=== PATIENT | male | born 1980 | race Caucasian/White ===

== ENCOUNTER 2020-01-10 15:33 | Inpatient (IN) | payer OTHER ==
--- OUTSIDE RECORDS SUMMARY | 2020-01-10 15:36 | XMS ---
:1980 Author Organization [facility] Support Name Relationship Address Phone UE Unavailable Unavailable Unavailable OLGA KUMAR [address] [phone] [place] [address] Re-disclosure Warning The records that you are about to access may contain information from federally- assisted alcohol or drug abuse programs. If such information is present, then the following federally mandated warning applies: This information has been disclosed to you from records protected by federal confidentiality rules (42 CFR part 2). The federal rules prohibit you from making any further disclosure of this information unless further disclosure is expressly permitted by the written consent of the person to whom it pertains or as otherwise permitted by 42 CFR part 2. A general authorization for the release of medical or other information is NOT sufficient for this purpose. The Federal rules restrict any use of the information to criminally investigate or prosecute any alcohol or drug abuse patient.The records that you are about to access may contain highly sensitive health information, the redisclosure of which is protected by Article 27-F of the [facility] Public Health law. If you continue you may haveaccess to information: Regarding HIV / AIDS; Provided by facilities licensed or operated by the [facility] Office of Mental Health; or Provided by the [facility] Office for People With Developmental Disabilities. If such information is present, then the following [facility] mandated warning applies: This information has been disclosed to you from confidential records which are protected by state law. State law prohibits you from making any further disclosure of this information without the specific written consent of the person to whom it pertains, or as otherwise permitted by law. Any unauthorized further disclosure in violation of state law may result in a fine or long term sentence or both. A general authorization for the release of medical or other information is NOT sufficient authorization for further disclosure. Insurance Providers Payer name Policy type Policy ID Covered Covered democrat's Policy P lars / Coverage democrat ID relationship to [facility] [id number] FIRST
[2020-01-10 18:12] VITALS: BMI 22.1
--- NOTE | 2020-01-10 21:37 | HP ---
COWS - Scale Resting Pulse: 0= [place] 80 or Below Sweatin=Flushed/Facial Moisture Restless Observation: 0= Sits Still Pupil Size: 0= Normal to Room Light Bone or Joint Aches: 4=Acute Joint/Muscle Pain Runny Nose/ Eye Tearin= Runny Nose/Eyes GI Upset > 30mins: 1= Stomach Cramp Tremor Observation: 2= Slight Tremor Visible Yawning Observation: 1= 1-2x During Session Anxiety or Irritability: 2=Irritable/Anxious Goose Flesh Skin: 0=Smooth Skin COWS Score: 14 CIWA Score - Admission Criteria OASAS Guidelines: Admission for Medically Managed Detox: Requires at least one of the followin. CIWA greater than 12 2. Seizures within the past 24 hours 3. Delirium tremens within the past 24 hours 4. Hallucinations within the past 24 hours 5. Acute intervention needed for co occurring medical disorder 6. Acute intervention needed for co occurring psychiatric disorder 7. Severe withdrawal that cannot be handled at a lower level of care (continued vomiting, continued diarrhea, abnormal vital signs) requiring intravenous medication and/or fluids 8. Admission ROS [facility] Chief Complaint: Seeking admission to detox from alcohol Allergies/Adverse Reactions: Allergies Allergy/AdvReac Type Severity Reaction Status Date / Time No Known Allergies Allergy Verified 12/23/14 14:43 History of Present Illness: 39 years old male with 20 years of heroin dependence is seeking admission to detox. Patient was here in 2014 but was not admitted. This is his first admission to [facility]. His last admission was at [facility]. He uses 40 bags of heroin daily. He has medical history of Hep. C, denies psych. history and suicidal ideation at this time. He is unemployed, lives with his family in [place] and denies any legal issues. He reports history of overdose and denies blackouts. Exam Limitations: No Limitations - Ebola screening Have you traveled outside of the country in the last 21 days: No Have you had contact with anyone from an Ebola affected area: No Have you been sick,other than usual withdrawal symptoms: No Do you have a fever: No - Review of Systems Constitutional: Chills, Malaise, Night Sweats, Changes in sleep EENT: reports: No Symptoms Reported Respiratory: reports: No Symptoms reported Cardiac: reports: No Symptoms Reported GI: reports: Nausea, Poor Appetite, Poor Fluid Intake, Abdominal cramping : reports: No Symptoms Reported Musculoskeletal: reports: No Symptoms Reported Integumentary: reports: Dryness, Flushing Neuro: reports: Tremors Endocrine: reports: No Symptoms Reported Hematology: reports: No Symptoms Reported Psychiatric: reports: Mood/Affect Appropiate, Orientated x3 Other Systems: Reviewed and Negative Patient History - Patient Medical History Hx Anemia: No Hx Asthma: No Hx Chronic Obstructive Pulmonary Disease (COPD): No Hx Cancer: No Hx Cardiac Disorders: No Hx Congestive Heart Failure: No Hx Hypertension: No Hx Hypercholesterolemia: No Hx Pacemaker: No HX Cerebrovascular Accident: No Hx Seizures: No Hx Dementia: No Hx Diabetes: No Hx Gastrointestinal Disorders: No (Hep C.) Hx Liver Disease: Yes Hx Genitourinary Disorders: No Hx Sexually Transmitted Disorders: No Hx Renal Disease (ESRD): No Hx Thyroid Disease: No Hx Human Immunodeficiency Virus (HIV): No (Negative 2019) Hx Hepatitis C: Yes (Not treated) Hx Depression: No Hx Suicide Attempt: No Hx Bipolar Disorder: No Hx Schizophrenia: No - Patient Surgical History Past Surgical History: No - PPD History Previous Implant?: Yes Documented Results: Negative w/proof Implanted On Prior R Admission?: No PPD to be Administered?: Yes - Reproductive History Patient is a Female of Child Bearing Age (11 -55 yrs old): No (Male) - Smoking Cessation Smoking history: Current every day smoker Have you smoked in the past 12 months: Yes Aproximately how many cigarettes per day: 20 Hx Chewing Tobacco Use: No Initiated information on smoking cessation: Yes 'Breaking Loose' booklet given: 01/10/20 - Substance & Tx. History Hx Alcohol Use: No Hx Substance Use: Yes Substance Use Type: Cocaine, Heroin - Substances abused Heroin Substance route: Injection Frequency: Daily Amount used: 40 bags Age of first use: 19 Date of last use: 01/10/20 Admission Physical Exam BHS - Vital Signs Vital Signs: Vital Signs - 24 hr 01/10/20 18:10 Temperature 98.1 F Pulse Rate 74 Respiratory 20 Rate Blood Pressure 108/61 - Physical General Appearance: Yes: Severe Distress, Tremorous, Irritable, Anxious HEENTM: Yes: Within Normal Limits Respiratory: Yes: Lungs Clear, Normal Breath Sounds, No Respiratory Distress Neck: Yes: Within Normal Limits Breast: Yes: Breast Exam Deferred Cardiology: Yes: Regular Rhythm, Regular Rate Abdominal: Yes: Normal Bowel Sounds Genitourinary: Yes: Within Normal Limits Back: Yes: Normal Inspection Musculoskeletal: Yes: Back pain, Muscle Pain Extremities: Yes: Tremors Neurological: Yes: Within Normal Limits Integumentary: Yes: Warm Lymphatic: Yes: Within Normal Limits - Diagnostic (1) Opioid dependence with withdrawal Current Visit: Yes Status: Acute (2) Hep C w/o coma, chronic Current Visit: Yes Status: Chronic (3) Nicotine dependence Current Visit: Yes Status: Chronic Qualifiers: Nicotine product type: cigarettes Substance use status: uncomplicated Qualified Code(s): F17.210 - Nicotine dependence, cigarettes, uncomplicated Cleared for Admission S - Detox or Rehab [facility] Level of Care: Medically Managed Detox Regimen/Protocol: Methadone Claeared for Rehab Admission: No Breathalyzer - Breathalyzer Breathalyzer: 0 Urine Drug Screen - Test Device Lot number: [id number] Expiration date: 07/08/21 - Control Is test valid?: Yes - Results Drug screen NEGATIVE: No Urine drug screen results: ANASTASIA-Cocaine, FEN-Fentanyl, MOP-Opiates Inpatient Rehab Admission - Rehab Decision to Admit Inpatient rehab admission?: No
[2020-01-10] MEDS ORDERED: MENTHOL/PHENOL 1 EACH UD MM PRN (21:50)
[2020-01-10] MEDS ORDERED: METHOCARBAMOL 500 MG TABLET PO PRN (21:50)
[2020-01-10] MEDS ORDERED: MAGNESIUM CITRATE 300 ML BOTTLE PO PRN (21:50)
[2020-01-10] MEDS ORDERED: MAGNESIUM HYDROX 2400MG/30ML ORAL SUSPENSION 30 ML CUP PO PRN (21:50)
[2020-01-10] MEDS ORDERED: IBUPROFEN 400 MG TABLET (FP) PO PRN (21:50)
[2020-01-10] MEDS ORDERED: ACETAMINOPHEN 325 MG TABLET (FP) PO PRN (21:50)
[2020-01-10] MEDS ORDERED: MAG HYDROX/AL HYDROX/SIMETH 30 ML UNIT-DOSE CUP PO PRN (21:50)
[2020-01-10] MEDS ORDERED: ONDANSETRON *ODT* 4 MG TABLET SL PRN (21:50)
[2020-01-10] MEDS ORDERED: cloNIDine HCL 0.1 MG TABLET PO PRN (21:50)
[2020-01-10] MEDS ORDERED: BISMUTH SUBSALICYLATE 524 MG/30 ML UD PO PRN (21:50)
[2020-01-10] MEDS ORDERED: NICOTINE POLACRILEX 2 MG GUM BUC PRN (21:50)
[2020-01-10] MEDS ORDERED: METHADONE HCL 10 MG TABLET (FOR DETOX USE ONLY) PO ONE (21:50)
--- OUTSIDE RECORDS SUMMARY | 2020-01-10 21:51 | XMS ---
:1980 Author Organization [facility] Support Name Relationship Address Phone UE Unavailable Unavailable Unavailable OLGA KUMAR [address] [phone] [place] [address] Re-disclosure Warning The records that you are [...] is protected by Article 27-F of the [facility] Public Health law. If you continue you may haveaccess to information: Regarding HIV / AIDS; Provided by facilities licensed or operated by the [facility] Office of Mental Health; or Provided by the [facility] Office for People With Developmental Disabilities. If such information is present, then the following [facility] mandated warning applies: This information has [...] law may result in a fine or [place] health [place] sentence or both. A general authorization for the release of medical or other information is NOT sufficient authorization for further disclosure. Insurance Providers Payer name Policy type Policy ID Covered Covered green party's Policy P lars / Coverage green party ID relationship to [facility] [id number] FIRST
[2020-01-10] MEDS: THIAMINE HCL 100 MG TABLET (FP) PO SCH (23:06)
[2020-01-10] MEDS: MELATONIN 5 MG TABLETS PO SCH (23:08)
[2020-01-11] MEDS ORDERED: METHADONE HCL 5 MG TABLET (FOR DETOX USE ONLY) ONE (09:19)
[2020-01-11] MEDS ORDERED: METHADONE HCL 10 MG TABLET (FOR DETOX USE ONLY) ONE (09:19)
[2020-01-11] MEDS ORDERED: METHADONE (DETOX) 20 MG, METHADONE (DETOX) 5 MG PO ONE (10:00)
[2020-01-11 10:16] LABS: HEMATOCRIT 35.2 % (35.4-49); HEMOGLOBIN 11.9 GM/dL (11.7-16.9); MCHC 33.7 g/dl (32.0-35.9); MEAN PLT VOLUME 7.9 fl (7.5-11.1); PLATELET COUNT 239 K/MM3 (134-434); RBC 3.96 M/mm3 (4.00-5.60); RDW 14.3 % (11.9-15.9); WHITE BLOOD COUNT 4.5 K/mm3 (4.0-10.0)
[2020-01-11 10:22] LABS: ALBUMIN 2.6 g/dl (3.4-5.0); BILIRUBIN,TOTAL 0.1 mg/dL (0.2-1); BLOOD UREA NITROGEN 17.1 mg/dL (7-18); CALCIUM 8.5 mg/dL (8.5-10.1); POTASSIUM 4.3 mmol/L (3.5-5.1); TOT PROT 5.9 g/dl (6.4-8.2)
[2020-01-11] MEDS: PRENATAL VITAMINS W/ FOLIC ACID TABLET (FP) PO SCH (10:24)
[2020-01-11] MEDS: NICOTINE 21 MG/24 HOURS TOPICAL PATCH TD SCH (10:25)
--- NOTE | 2020-01-11 10:54 | PN ---
BHS COWS - Scale Resting Pulse: 0= [place] 80 or Below Sweatin= Chills/Flushing Restless Observation: 1= Difficult to Sit Still Pupil Size: 0= Normal to Room Light Bone or Joint Aches: 2= Severe Diffuse Aches Runny Nose/ Eye Tearin= None GI Upset > 30mins: 0= None Tremor Observation of Outstretched Hands: 2= Slight Tremor Visible Yawning Observation: 0= None Anxiety or Irritability: 2=Irritable/Anxious Goose Flesh Skin: 0=Smooth Skin COWS Score: 8 BHS Progress Note (SOAP) Subjective: C/ O chills, body aches, tremors and anxiety. Objective: 01/11/20 10:58 Vital Signs 01/11/20 01/11/20 05:13 08:50 Temperature 97.8 F 98.8 F Pulse Rate 60 79 Respiratory 18 17 Rate Blood Pressure 104/56 L 110/79 O2 Sat by Pulse 100 100 Oximetry (%) Laboratory Last Values WBC 4.5 K/mm3 (4.0-10.0) 01/11/20 07:35 RBC 3.96 M/mm3 (4.00-5.60) L 01/11/20 07:35 Hgb 11.9 GM/dL (11.7-16.9) 01/11/20 07:35 Hct 35.2 % (35.4-49) L 01/11/20 07:35 MCV 89.0 fl (80-96) 01/11/20 07:35 MCH 30.0 pg (25.7-33.7) 01/11/20 07:35 MCHC 33.7 g/dl (32.0-35.9) 01/11/20 07:35 RDW 14.3 % (11.9-15.9) 01/11/20 07:35 Plt Count 239 K/MM3 (134-434) 01/11/20 07:35 MPV 7.9 fl (7.5-11.1) 01/11/20 07:35 Sodium 140 mmol/L (136-145) 01/11/20 07:35 Potassium 4.3 mmol/L (3.5-5.1) 01/11/20 07:35 Chloride 105 mmol/L (98-107) 01/11/20 07:35 Carbon Dioxide 32 mmol/L (21-32) 01/11/20 07:35 Anion Gap 4 MMOL/L (8-16) L 01/11/20 07:35 BUN 17.1 mg/dL (7-18) 01/11/20 07:35 Creatinine 1.0 mg/dL (0.55-1.3) 01/11/20 07:35 Est GFR (CKD-EPI)AfAm 110.94 01/11/20 07:35 Est GFR (CKD-EPI)NonAf 95.72 01/11/20 07:35 Random Glucose 93 mg/dL (74-106) 01/11/20 07:35 Calcium 8.5 mg/dL (8.5-10.1) 01/11/20 07:35 Total Bilirubin 0.1 mg/dL (0.2-1) L 01/11/20 07:35 AST 18 U/L (15-37) 01/11/20 07:35 ALT 26 U/L (13-61) 01/11/20 07:35 Alkaline Phosphatase 66 U/L (45-117) 01/11/20 07:35 Total Protein 5.9 g/dl (6.4-8.2) L 01/11/20 07:35 Albumin 2.6 g/dl (3.4-5.0) L 01/11/20 07:35 Syphilis Serology Non-reactive (NONREACTIVE) 01/11/20 07:35 Labs noted with reactive syphilis serology, pending titer but patient was treated last for syphilis. Assessment: 01/11/20 11:00 Alert and oriented x3, in no acute respiratory distress. Full ROM, ambulating in the unit without assistance. Withdrawal symptoms. Plan: Continue detox protocol.
--- NOTE | 2020-01-11 21:49 | EKG ---
Test Reason : Blood Pressure : / mmHG Vent. Rate : 076 BPM Atrial Rate : 076 BPM P-R Int : 132 ms QRS Dur : 090 ms QT Int : 410 ms P-R-T Axes : 036 085 059 degrees QTc Int : 461 ms NORMAL SINUS RHYTHM NORMAL ECG NO PREVIOUS ECGS AVAILABLE Confirmed by Naomi Matthew ([id number]) on 01/11/2020 9:49:06 PM Referred By: Confirmed By:Naomi Matthew
[2020-01-11] MEDS: MELATONIN 5 MG TABLETS PO SCH (22:23)
[2020-01-11] MEDS: THIAMINE HCL 100 MG TABLET (FP) PO SCH (22:24)
--- NOTE | 2020-01-12 09:49 | PN ---
S COWS - Scale Resting Pulse: 0= [place] 80 or Below Sweatin= Chills/Flushing Restless Observation: 1= Difficult to Sit Still Pupil Size: 0= Normal to Room Light Bone or Joint Aches: 2= Severe Diffuse Aches Runny Nose/ Eye Tearin= Runny Nose/Eyes GI Upset > 30mins: 0= None Tremor Observation of Outstretched Hands: 1= Tremor [place], Not Seen Yawning Observation: 1= 1-2x During Session Anxiety or Irritability: 2=Irritable/Anxious Goose Flesh Skin: 3=Piloerection COWS Score: 13 BHS Progress Note (SOAP) Subjective: sweats chills body aches interrupted sleep restless muscle cramping irritable Objective: 01/12/20 10:03 Vital Signs Temperature 98.2 F 01/12/20 08:46 Pulse Rate 68 01/12/20 08:46 Respiratory Rate 17 01/12/20 08:46 Blood Pressure 105/62 01/12/20 08:46 O2 Sat by Pulse Oximetry (%) 97 01/12/20 08:46 Laboratory Tests 01/11/20 01/11/20 01/11/20 07:35 07:35 07:35 WBC 4.5 RBC 3.96 L Hgb 11.9 Hct 35.2 L MCV 89.0 MCH 30.0 MCHC 33.7 RDW 14.3 Plt Count 239 MPV 7.9 Sodium 140 Potassium 4.3 Chloride 105 Carbon Dioxide 32 Anion Gap 4 L BUN 17.1 Creatinine 1.0 Est GFR (CKD-EPI)AfAm 110.94 Est GFR (CKD-EPI)NonAf 95.72 Random Glucose 93 Calcium 8.5 Total Bilirubin 0.1 L AST 18 ALT 26 Alkaline Phosphatase 66 Total Protein 5.9 L Albumin 2.6 L Syphilis Serology Non-reactive labs noted aaox3 ambulating no acute distress Assessment: 01/12/20 10:03 withdrawals Plan: continue detox increase fluids valium 10mg prn x 3 days roboxin 750mg prn
[2020-01-12] MEDS ORDERED: METHOCARBAMOL 750 MG TAB PO PRN (09:50)
[2020-01-12] MEDS ORDERED: METHADONE HCL 10 MG TABLET (FOR DETOX USE ONLY) PO ONE (10:00)
[2020-01-12] MEDS: NICOTINE 21 MG/24 HOURS TOPICAL PATCH TD SCH (10:03)
[2020-01-12] MEDS: PRENATAL VITAMINS W/ FOLIC ACID TABLET (FP) PO SCH (10:03)
[2020-01-12] MEDS: diazePAM 5 MG TABLET PO PRN ×2 (14:23→22:50)
[2020-01-12] MEDS: THIAMINE HCL 100 MG TABLET (FP) PO SCH (22:39)
[2020-01-12] MEDS: MELATONIN 5 MG TABLETS PO SCH (22:39)
--- NOTE | 2020-01-12 23:59 | PN ---
[facility] Progress Note Note: ASKED TO SEE CLIENT FOR FEVER 101. CLIENT SEEN LYING IN BED NAD, A/O X3, DENIES COUGH, CHILLS, N/V/D/, SORE THROAT. IVDU BUT DENIES ANY ABSCESS, REDNESS/SWELLING OF SKIN. CLIENT DECLINES PE. STATES HE IS FINE REPEAT TEMP AFTER TYLENOL 98.2 Vital Signs 01/12/20 01/12/20 01/12/20 17:27 21:30 22:33 Temperature 97.7 F 98.4 F 101.6 F H Pulse Rate 68 80 94 H Respiratory 18 18 18 Rate Blood Pressure 96/51 L 117/66 115/61 O2 Sat by Pulse 97 97 Oximetry (%)
[2020-01-13] MEDS: ACETAMINOPHEN 325 MG TABLET (FP) PO PRN ×2 (06:06→14:42)
[2020-01-13] MEDS ORDERED: METHADONE HCL 10 MG TABLET (FOR DETOX USE ONLY) ONE (08:52)
[2020-01-13] MEDS ORDERED: METHADONE HCL 5 MG TABLET (FOR DETOX USE ONLY) ONE (08:52)
[2020-01-13] MEDS ORDERED: METHADONE (DETOX) 10 MG, METHADONE (DETOX) 5 MG PO ONE (10:00)
[2020-01-13] MEDS: PRENATAL VITAMINS W/ FOLIC ACID TABLET (FP) PO SCH (10:19)
[2020-01-13] MEDS: NICOTINE 21 MG/24 HOURS TOPICAL PATCH TD SCH (10:19)
[2020-01-13] MEDS: diazePAM 5 MG TABLET PO PRN (10:21)
--- NOTE | 2020-01-13 11:04 | PN ---
BHS COWS - Scale Resting Pulse: 0= [place] 80 or Below Sweatin= Chills/Flushing Restless Observation: 0= Sits Still Pupil Size: 0= Normal to Room Light Bone or Joint Aches: 1= Mild Discomfort Runny Nose/ Eye Tearin= None GI Upset > 30mins: 0= None Tremor Observation of Outstretched Hands: 1= Tremor [place], Not Seen Yawning Observation: 1= 1-2x During Session Anxiety or Irritability: 1=Feels Anxious/Irritable Goose Flesh Skin: 0=Smooth Skin COWS Score: 5 BHS Progress Note (SOAP) Subjective: chills feeling better little body aches Objective: 01/13/20 11:04 Vital Signs Temperature 97.1 F L 01/13/20 09:14 Pulse Rate 70 01/13/20 09:14 Respiratory Rate 16 01/13/20 09:14 Blood Pressure 96/55 L 01/13/20 09:14 O2 Sat by Pulse Oximetry (%) 98 01/13/20 09:14 Laboratory Tests 01/10/20 01/11/20 01/11/20 22:00 07:35 07:35 WBC 4.5 RBC 3.96 L Hgb 11.9 Hct 35.2 L MCV 89.0 MCH 30.0 MCHC 33.7 RDW 14.3 Plt Count 239 MPV 7.9 Sodium Potassium Chloride Carbon Dioxide Anion Gap BUN Creatinine Est GFR (CKD-EPI)AfAm Est GFR (CKD-EPI)NonAf Random Glucose Calcium Total Bilirubin AST ALT Alkaline Phosphatase Total Protein Albumin Syphilis Serology Non-reactive COVID-19 (SOFIA) Not detected 01/11/20 07:35 WBC RBC Hgb Hct MCV MCH MCHC RDW Plt Count MPV Sodium 140 Potassium 4.3 Chloride 105 Carbon Dioxide 32 Anion Gap 4 L BUN 17.1 Creatinine 1.0 Est GFR (CKD-EPI)AfAm 110.94 Est GFR (CKD-EPI)NonAf 95.72 Random Glucose 93 Calcium 8.5 Total Bilirubin 0.1 L AST 18 ALT 26 Alkaline Phosphatase 66 Total Protein 5.9 L Albumin 2.6 L Syphilis Serology COVID-19 (SOFIA) labs noted aaox3 lying in bed no acute distress no s/s of fever Assessment: 01/13/20 11:04 mild withdrawals Plan: continue detox increase fluids ensure bid
[2020-01-13] MEDS ORDERED: ALBUTEROL SO4 2.5/IPRATROPIUM 0.5 INH SOL 3 ML VIAL.NEB. NEB PRN (13:55)
[2020-01-13] MEDS ORDERED: SULFAMETHOXAZOLE/TRIMETHOPRIM 800MG/160MG D.S. TABLET PO ONE (14:13)
--- NOTE | 2020-01-13 14:14 | PN ---
[facility] Progress Note Note: Vital Signs Temperature 100.4 F H 01/13/20 12:54 Pulse Rate 88 01/13/20 14:38 Respiratory Rate 18 01/13/20 12:54 Blood Pressure 128/76 01/13/20 12:54 O2 Sat by Pulse Oximetry (%) 98 01/13/20 12:54 last temp 100.4. pt was assessed and appears asymptomatic. pt states I get and feel sick a few days before getting discharged. pt skin assessed no s/s of abscess. lungs assessed, some rhonchi and wheeze noted pt encouraged in drink fluids Bactrim ds bid ordered duoneb tx ordered labs re-ordered chest x-ray ordered pt was advised if pt continue to spike a temp; he will be transferred to [place] ED for evaluation. pt in agreement.
[2020-01-13] MEDS ORDERED: ALBUTEROL SO4 2.5/IPRATROPIUM 0.5 INH SOL 3 ML VIAL.NEB. NEB ONE (14:15)
[2020-01-13 21:29] VITALS: BP 112/65; PULSE 91; TEMP 102.2
--- NOTE | 2020-01-13 21:52 | PN ---
Guy Progress Note Note: Patient's temperature is T102.2F. He had a low grade fever this morning and Bactrim DS antibiotics initiated. He refused physical assessment, denies sick contact and reports medical history of Hep. C (untreated). Patient is being transferred to emergency room for further evaluation. Endorsed to Dr. Morillo. Vital Signs Temperature 102.2 F H 01/13/20 21:25 Pulse Rate 91 H 01/13/20 21:25 Respiratory Rate 18 01/13/20 21:25 Blood Pressure 112/65 01/13/20 21:25 O2 Sat by Pulse Oximetry (%) 98 01/13/20 21:25 Laboratory Last Values WBC 4.5 K/mm3 (4.0-10.0) 01/11/20 07:35 RBC 3.96 M/mm3 (4.00-5.60) L 01/11/20 07:35 Hgb 11.9 GM/dL (11.7-16.9) 01/11/20 07:35 Hct 35.2 % (35.4-49) L 01/11/20 07:35 MCV 89.0 fl (80-96) 01/11/20 07:35 MCH 30.0 pg (25.7-33.7) 01/11/20 07:35 MCHC 33.7 g/dl (32.0-35.9) 01/11/20 07:35 RDW 14.3 % (11.9-15.9) 01/11/20 07:35 Plt Count 239 K/MM3 (134-434) 01/11/20 07:35 MPV 7.9 fl (7.5-11.1) 01/11/20 07:35 Sodium 140 mmol/L (136-145) 01/11/20 07:35 Potassium 4.3 mmol/L (3.5-5.1) 01/11/20 07:35 Chloride 105 mmol/L (98-107) 01/11/20 07:35 Carbon Dioxide 32 mmol/L (21-32) 01/11/20 07:35 Anion Gap 4 MMOL/L (8-16) L 01/11/20 07:35 BUN 17.1 mg/dL (7-18) 01/11/20 07:35 Creatinine 1.0 mg/dL (0.55-1.3) 01/11/20 07:35 Est GFR (CKD-EPI)AfAm 110.94 01/11/20 07:35 Est GFR (CKD-EPI)NonAf 95.72 01/11/20 07:35 Random Glucose 93 mg/dL (74-106) 01/11/20 07:35 Calcium 8.5 mg/dL (8.5-10.1) 01/11/20 07:35 Total Bilirubin 0.1 mg/dL (0.2-1) L 01/11/20 07:35 AST 18 U/L (15-37) 01/11/20 07:35 ALT 26 U/L (13-61) 01/11/20 07:35 Alkaline Phosphatase 66 U/L (45-117) 01/11/20 07:35 Total Protein 5.9 g/dl (6.4-8.2) L 01/11/20 07:35 Albumin 2.6 g/dl (3.4-5.0) L 01/11/20 07:35 Syphilis Serology Non-reactive (NONREACTIVE) 01/11/20 07:35 COVID-19 (SOFIA) Not detected (Not Detected) 01/10/20 22:00 Action: Transfer patient to ER
[2020-01-13] MEDS ORDERED: SULFAMETHOXAZOLE/TRIMETHOPRIM 800MG/160MG D.S. TABLET PO SCH (22:00)
[2020-01-13] MEDS: THIAMINE HCL 100 MG TABLET (FP) PO SCH (22:48)
[2020-01-13] MEDS: MELATONIN 5 MG TABLETS PO SCH (22:48)
[2020-01-14 01:01] LABS: PH,URINE 7.5 (5.0-8.0); URINE APPEARANCE CLEAR; URINE BILIRUBIN NEGATIVE (NEGATIVE); URINE COLOR YELLOW; URINE GLUCOSE (UA) NEGATIVE (NEGATIVE); URINE KETONE NEGATIVE (NEGATIVE); URINE LEUK ESTERASE NEGATIVE (NEGATIVE); URINE NITRITE NEGATIVE (NEGATIVE); URINE PROTEIN TRACE (NEGATIVE)
--- NOTE | 2020-01-14 03:28 | HP ---
CHIEF COMPLAINT: low grade fever PCP: none HISTORY OF PRESENT ILLNESS: Mr. Ryan is a 39m w a h/o iVDA using 20 bags of heroin daily and untreated hep C who was transferred from [facility] to the ED for a c/o low grade fever and body aches. The patient reports his first onset of fever 2 days ago. He endorses The patient denies ER course was notable for: (1) elevated LFTs (2) (3) Recent Travel: denies PAST MEDICAL HISTORY: PAST SURGICAL HISTORY: Social History: Smoking: Alcohol: Drugs: Allergies No Known Allergies Allergy (Verified 12/23/14 14:43) HOME MEDICATIONS: Home Medications Medication Instructions Recorded NK [No Known Home Medication] 12/23/14 REVIEW OF SYSTEMS See above PHYSICAL EXAMINATION Vital Signs - 24 hr 01/13/20 01/13/20 01/13/20 05:50 09:14 12:54 Temperature 101.3 F H 97.1 F L 100.4 F H Pulse Rate 88 70 82 Respiratory 18 16 18 Rate Blood Pressure 125/66 96/55 L 128/76 O2 Sat by Pulse 97 98 98 Oximetry (%) 01/13/20 01/13/20 01/13/20 14:38 17:40 21:25 Temperature 98.1 F 102.2 F H Pulse Rate 88 83 91 H Respiratory 18 18 Rate Blood Pressure 112/59 L 112/65 O2 Sat by Pulse 98 98 Oximetry (%) GENERAL: Awake, alert, and fully oriented, in no acute distress. HEAD: Normal with no signs of trauma. EYES: Pupils equal, round and reactive to light, extraocular movements intact, sclera anicteric, conjunctiva clear. No lid lag. EARS, NOSE, THROAT: Ears normal, nares patent, oropharynx clear without exudates. Moist mucous membranes. NECK: Normal range of motion, supple without lymphadenopathy, JVD, or masses. LUNGS: Breath sounds equal, clear to auscultation bilaterally. No wheezes, and no crackles. No accessory muscle use. HEART: Regular rate and rhythm, normal S1 and S2 without murmur, rub or gallop. ABDOMEN: Soft, nontender, not distended, normoactive bowel sounds, no guarding, no rebound, no masses. No hepatomegaly or splenomegaly. MUSCULOSKELETAL: Normal range of motion at all joints. No bony deformities or tenderness. No CVA tenderness. UPPER EXTREMITIES: 2+ pulses, warm, well-perfused. No cyanosis. No clubbing. No peripheral edema. LOWER EXTREMITIES: 2+ pulses, warm, well-perfused. No calf tenderness. No peripheral edema. NEUROLOGICAL: Cranial nerves II-XII intact. Normal speech. Normal gait. PSYCHIATRIC: Cooperative. Good eye contact. Appropriate mood and affect. SKIN: Warm, dry, normal turgor, no rashes or lesions noted, normal capillary ref ill. Laboratory Results - last 24 hr 01/13/20 21:35 Urine Color Yellow Urine Appearance Clear Urine pH 7.5 Ur Specific [place] 1.025 Urine Protein Trace Urine Glucose (UA) Negative Urine Ketones Negative Urine Blood Negative Urine Nitrite Negative Urine Bilirubin Negative Urine Urobilinogen 1.0 Ur Leukocyte Esterase Negative ASSESSMENT/PLAN: Mr. Ryan is a 39m w a h/o heroin abuse and untreated hep C who was transferred from [facility] to the ED for a c/o low grade fever and body aches. #Sepsis - IVF - blood cultures collected - covid test pending - ct chest #untreated hep c - elevated LFT - repeat CMP - hep A/B/C panel - Consult GI #Heroin withdrawal - confirm dosage of methadone - COWS score - #FEN - IVF - monitor lytes - full diet #DVT PPX - lovenox sq #Dispo - admit to med surg #Advanced Directives - full code ATTENDING PHYSICIAN STATEMENT I saw and evaluated the patient. I reviewed the resident's note and discussed the case with the resident. I agree with the resident's findings and plan as documented. SUBJECTIVE: OBJECTIVE: ASSESSMENT AND PLAN:
[2020-01-14] MEDS ORDERED: METHADONE HCL 10 MG TABLET (FOR DETOX USE ONLY) PO ONE (10:00)
[2020-01-15] MEDS ORDERED: METHADONE HCL 5 MG TABLET (FOR DETOX USE ONLY) PO ONE (06:00)
--- NOTE | 2020-01-15 15:09 | DS ---
[facility] Detox Discharge Summary Admission Date: 01/10/20 Discharge Date: 01/13/20 - History Present History: Opioid Dependence - Physical Exam Results Vital Signs: Vital Signs Temperature 102.2 F H 01/13/20 21:25 Pulse Rate 91 H 01/13/20 21:25 Respiratory Rate 18 01/13/20 21:25 Blood Pressure 112/65 01/13/20 21:25 O2 Sat by Pulse Oximetry (%) 98 01/13/20 21:25 Pertinent Admission Physical Exam Findings: Vital Signs Temperature 102.2 F H 01/13/20 21:25 Pulse Rate 91 H 01/13/20 21:25 Respiratory Rate 18 01/13/20 21:25 Blood Pressure 112/65 01/13/20 21:25 O2 Sat by Pulse Oximetry (%) 98 01/13/20 21:25 Laboratory Tests 01/10/20 01/11/20 01/11/20 22:00 07:35 07:35 WBC 4.5 RBC 3.96 L Hgb 11.9 Hct 35.2 L MCV 89.0 MCH 30.0 MCHC 33.7 RDW 14.3 Plt Count 239 MPV 7.9 Sodium Potassium Chloride Carbon Dioxide Anion Gap BUN Creatinine Est GFR (CKD-EPI)AfAm Est GFR (CKD-EPI)NonAf Random Glucose Calcium Total Bilirubin AST ALT Alkaline Phosphatase Total Protein Albumin Urine Color Urine Appearance Urine pH Ur Specific [place] Urine Protein Urine Glucose (UA) Urine Ketones Urine Blood Urine Nitrite Urine Bilirubin Urine Urobilinogen Ur Leukocyte Esterase Syphilis Serology Non-reactive COVID-19 (SOFIA) Not detected 01/11/20 01/13/20 07:35 21:35 WBC RBC Hgb Hct MCV MCH MCHC RDW Plt Count MPV Sodium 140 Potassium 4.3 Chloride 105 Carbon Dioxide 32 Anion Gap 4 L BUN 17.1 Creatinine 1.0 Est GFR (CKD-EPI)AfAm 110.94 Est GFR (CKD-EPI)NonAf 95.72 Random Glucose 93 Calcium 8.5 Total Bilirubin 0.1 L AST 18 ALT 26 Alkaline Phosphatase 66 Total Protein 5.9 L Albumin 2.6 L Urine Color Yellow Urine Appearance Clear Urine pH 7.5 Ur Specific [place] 1.025 Urine Protein Trace Urine Glucose (UA) Negative Urine Ketones Negative Urine Blood Negative Urine Nitrite Negative Urine Bilirubin Negative Urine Urobilinogen 1.0 Ur Leukocyte Esterase Negative Syphilis Serology COVID-19 (SOFIA) aaox3 sent to [facility] for evaluation - Treatment Patient has Accepted a Rehab Referral to: pt sent to [facility] ED - Medication Discharge Medications: Ambulatory Orders NK [No Known Home Medication] 12/23/14 - AMA Did Patient Leave Against Medical Advice: No
== END 2020-01-14 00:01 | disposition short-term general hospital (02) | DRG 773 ==
LOC: EDBD → YASAS 15:33 → Y6N 21:46
PROVIDERS: ADMIT Allergy & Immunology; ATTEND Allergy & Immunology
PROC: HZ2ZZZZ Detoxification Services for Substance Abuse Treatment (ICD-10-PCS; principal; 2020-01-10)
DX: F11.23 Opioid dependence with withdrawal (principal); F14.20 Cocaine dependence, uncomplicated; F17.210 Nicotine dependence, cigarettes, uncomplicated; B18.2 Chronic viral hepatitis C; R50.9 Fever, unspecified; Z56.0 Unemployment, unspecified
CPT/HCPCS: 36415; 80053; 81003; 85027; 86780; 93005; 93010; 94640; C9803; U0003

== ENCOUNTER 2020-01-13 23:02 | Inpatient (IN) | payer OTHER ==
--- OUTSIDE RECORDS SUMMARY | 2020-01-13 23:08 | XMS ---
:1980 Author [facility] Support Name Relationship Address Phone UE Unavailable Unavailable Unavailable OLGA KUMAR [address] [place] [address] Re-disclosure Warning The records that you are [...] is protected by Article 27-F of the [facility] Public Health law. If you continue you may haveaccess to information: Regarding HIV / AIDS; Provided by facilities licensed or operated by the [facility] Office of Mental Health; or Provided by the [facility] Office for People With Developmental Disabilities. If such information is present, then the following [facility] mandated warning applies: This information has been [...] name Policy type Policy ID Covered Covered libertarian's Policy P lars / Coverage libertarian ID relationship to [facility] ormation type woods [facility] [id number] FIRST Results ID Date Data Source [id number] 10/14/2019 12:00:00 PM EDT [facility] Name Value Range Interpretation Code Description Data Deanne rce(s) Supporting Document(s ) SARS-COV-2 [facility] PCR This lab was ordered by RAYNA MOE and re ported by [facility]. Procedure
[2020-01-13] MEDS ORDERED: SODIUM CHLORIDE 2,245 ML IV ONE (23:52)
--- NOTE | 2020-01-13 23:52 | PDOC ---
History of Present Illness - General Chief Complaint: SIRS, Suspected/Possible Stated Complaint: FEVER Time Seen by Provider: 01/13/20 23:52 History Source: Patient - History of Present Illness Initial Comments: 01/14/20 00:37 39-year-old male with 20 years of heroin dependence currently in detox admitted on 01/10/2024 heroin abuse. Patient reports IV drug abuse using 40 bags of heroin daily. Patient noted to have low-grade temperature with rhonchi and wheezing yesterday in detox patient was started on Bactrim. Today noted to have higher fever patient was sent to the ER for evaluation. Patient reports having generalized body aches and fever Past History - Medical History Allergies/Adverse Reactions: Allergies Allergy/AdvReac Type Severity Reaction Status Date / Time No Known Allergies Allergy Verified 12/23/14 14:43 Home Medications: Ambulatory Orders NK [No Known Home Medication] 12/23/14 Anemia: No Asthma: No Cancer: No Cardiac Disorders: No CVA: No COPD: No CHF: No Dementia: No Diabetes: No GI Disorders: No (Hep C.) Disorders: No HTN: No Hypercholesterolemia: No Kidney Stones: No Liver Disease: Yes Seizures: No Thyroid Disease: No - Reproductive History Testicular Surgery: No - Psycho-Social/Smoking History Smoking History: Current every day smoker Have you smoked in the past 12 months: Yes Number of Cigarettes Smoked Daily: 15 Information on smoking cessation initiated: Yes 'Breaking Loose' booklet given: 01/10/20 - Substance Abuse Hx (Audit-C & DAST Scrn) How often the patient has a drink containing alcohol: Never Score: In Men: 4 or > Positive; In Women: 3 or > Positive: 0 Screen Result (Pos requires Nsg. Audit-10AR): Negative Review of Systems - Review of Systems Able to Perform ROS?: Yes Is the patient limited Egyptian proficient: No Constitutional: Yes: Fever, Malaise, Other (bodyaches) *Physical Exam - Vital Signs Last Vital Signs Temp Pulse Resp BP Pulse Ox 102.5 F H 94 H 20 112/63 98 01/13/20 23:04 01/13/20 23:04 01/13/20 23:04 01/13/20 23:04 01/13/20 23:04 - Physical Exam General Appearance: Yes: Appropriately Dressed, Disheveled Respiratory/Chest: positive: Lungs Clear, Normal Breath Sounds Cardiovascular: positive: Regular Rhythm, Regular Rate Gastrointestinal/Abdominal: positive: Normal Bowel Sounds, Soft, Other (no abdom inal tenderness). negative: Tender Musculoskeletal: negative: CVA Tenderness Extremity: positive: Normal Inspection Integumentary: positive: Normal Color, Dry, Warm, Other (track line on forearm) Neurologic: positive: Fully Oriented, Alert, Normal Mood/Affect ED Treatment Course - LABORATORY CBC & Chemistry Diagram: 01/14/20 00:15 01/14/20 00:15 Medical Decision Making - Medical Decision Making 01/14/20 00:49 A: febrile illness IVDa r/o endocarditis; elevated LFTS P: cbc cmp blood culture ua urine culture lactic acid Discharge - Discharge Information Problems reviewed: Yes Clinical Impression/Diagnosis: Hep C w/o coma, chronic, Elevated LFTs Sepsis Qualifiers: Sepsis type: sepsis due to unspecified organism Sepsis acute organ dysfunction status: unspecified Qualified Code(s): A41.9 - Sepsis, unspecified organism - Admission Yes - Follow up/Referral - Patient Discharge Instructions - Post Discharge Activity
[2020-01-13] MEDS ORDERED: ACETAMINOPHEN 500 MG TABLET (FP) PO ONE (23:59)
[2020-01-14 00:33] LABS: BASO % 0.5 % (0-2.0); EOS % 2.7 % (0-4.5); HEMATOCRIT 38.2 % (35.4-49); HEMOGLOBIN 13.3 GM/dL (11.7-16.9); LYMPH % 5.8 % (8-40); MCH 30.7 pg (25.7-33.7); MCHC 34.9 g/dl (32.0-35.9); MEAN CELL VOLUME 88.2 fl (80-96); MEAN PLT VOLUME 8.2 fl (7.5-11.1); MONO % 7.6 % (3.8-10.2); NEUT % 83.4 % (42.8-82.8); PLATELET COUNT 190 K/MM3 (134-434); RBC 4.33 M/mm3 (4.00-5.60); RDW 14.3 % (11.9-15.9); WHITE BLOOD COUNT 4.9 K/mm3 (4.0-10.0)
[2020-01-14 00:40] LABS: INR 1.4 (0.83-1.09); PROTHROMBIN TIME (PATIENT) 16.4 SEC (9.7-13.0)
[2020-01-14] MEDS ORDERED: ACETAMINOPHEN 500 MG TABLET (FP) ONE (00:42)
[2020-01-14 00:43] LABS: ACTIVATED PTT 31.3 SECONDS (25.2-36.5)
[2020-01-14 00:58] LABS: ALBUMIN 2.7 g/dl (3.4-5.0); ANION GAP 7 MMOL/L (8-16); BILIRUBIN,TOTAL 0.8 mg/dL (0.2-1); BLOOD UREA NITROGEN 12.4 mg/dL (7-18); CALCIUM 8.2 mg/dL (8.5-10.1); CHLORIDE 98 mmol/L (98-107); CO2 27 mmol/L (21-32); CREATININE 0.9 mg/dL (0.55-1.3); GLUCOSE,RANDOM 127 mg/dL (74-106); POTASSIUM 4.1 mmol/L (3.5-5.1); SGOT/AST 857 U/L (15-37); SGPT/ALT 837 U/L (13-61); SODIUM 131 mmol/L (136-145); TOT PROT 6.7 g/dl (6.4-8.2)
[2020-01-14 01:02] LABS: ALK PHOS 271 U/L (45-117)
[2020-01-14 02:10] LABS: LIPASE 38 U/L (73-393)
[2020-01-14] MEDS ORDERED: PIPERACILLIN/TAZOBACTAM 4.5 GM VIAL IVPB ONE (02:18)
--- NOTE | 2020-01-14 03:19 | PN ---
Teaching Attending Note Name of Resident: Sander Cash ATTENDING PHYSICIAN STATEMENT I saw and evaluated the patient. I reviewed the resident's note and discussed the case with the resident. I agree with the resident's findings and plan as documented. SUBJECTIVE: Patient is a 39 year old man with a PMH of Polysubstance abuse (alcohol, heroin, cocaine), IVDA, Hepatitis C disease (untreated), Drug over dose and Tobacco use sent from [facility] for fever with rhonchi and wheezing yesterday. Patient was started on Bactrim. Today noted to have higher fever patient was sent to the ER for evaluation. Also having generalized body aches. Patient denies chest pain, shortness of breath, abdominal pain, headache, palpitations, dizziness, chills, nausea, vomiting, diarrhea, constipation, dysuria, frequency, urgency, melena, hematochezia or hematuria. Patient is unemployed. No sick contacts or recent travels. Family history is unremarkable. OBJECTIVE: Alert Vital Signs Period Temp Pulse Resp BP Sys/Rebollar Pulse Ox Last 24 Hr 99.9 F-102.5 F 73-94 20-20 92-112/57-63 97-98 HEENT: No Jaundice, eye redness or discharge, PERRLA, EOMI. Normocephalic, atraumatic. External ears are normal and hearing is grossly intact. No nasal discharge. Neck: Supple, nontender. No palpable adenopathy or thyromegaly. No JVD Chest: Good effort. Clear to auscultation and percussion. Heart: Regular. No S3, rub or murmur Abdomen: Not distended, soft, nontender and no HSM. No rebound or guarding. Normal bowel sounds. Ext: Peripheral pulses intact. No leg edema. Skin: Warm and dry. No petechiae, rash or ecchymosis. Neuro: Alert. Oriented x3. CN 2-12 grossly intact. Sensation grossly intact in all four extremities and DTR are symmetric. Psych: Appropriate mood and affect. Good insight. Home Medications Medication Instructions Recorded NK [No Known Home Medication] 12/23/14 Abnormal Lab Results 01/14/20 01/14/20 01/14/20 00:15 00:15 00:15 Neutrophils % 83.4 H Lymphocytes % 5.8 L PT with INR 16.40 H INR 1.40 H Sodium 131 L Anion Gap 7 L Random Glucose 127 H Calcium 8.2 L AST 857 H ALT 837 H Alkaline Phosphatase 271 H Albumin 2.7 L Lipase 38 L Current Medications Generic Name Dose Route Start Last Admin Trade Name Lennox PRN Reason Stop Dose Admin Enoxaparin Sodium 40 mg 01/14/20 10:00 Lovenox - SQ DAILY [facility] Sodium Chloride 1,000 mls @ 150 mls/hr 01/14/20 02:30 01/14/20 05:03 Normal Saline - IV 150 mls/hr ASDIR [facility] Administration ASSESSMENT AND PLAN: 1. Sepsis of unknown origin - Source unclear but will rule out endocarditis and acute hepatitis. LFTs were normal on 01/11/2020 so he may have acute viral hepatitis. Blood cultures done and urinalysis is pending. No acute abnormality on CXR. Will get RUQ sonogram, hepatitis serology, ECHO, HbA1c, HIV test, give IV Vancomycin, IV Zosyn, IV NS and consult GI/ID. EKG shows NSR at 86/minute and QTc 445, LAE with no significant acute ischemic ST-T wave changes. Not significantly changed compared to prior EKG. Initial troponin is negative. Hyponatremia likely partly due to hyperglycemia. Will limit free water intake and correct hyperglycemia. Viral testing for COVID-19 ordered and patient placed on airborne, droplet and contact isolation. Will continue comprehensive care for all of patients comorbid conditions. 2. Hypoalbuminemia - Possibly due to combined effects of malnutrition and inflammation associated with comorbid conditions. Will ensure adequate dietary protein intake and also consult security chief museum. Urinalysis pending. 3. Tobacco Use Counseled on risks associated with tobacco use. We will provide patient all the necessary assistance to facilitate smoking cessation and prescribe Nicotine patch. 4. Polysubstance abuse Monitor closely for drug withdrawal. Will admit to telemetry, implement [facility] Librium alcohol withdrawal protocol and do neurochecks. Implement seizure, fall and aspiration precautions. Treat with IV Banana bag, thiamine and folic acid. Monitor and replete electrolytes (Ca,Mg,K,P). Counseled patient about abstaining from illicit drugs/alcohol. Will consult residential specialist and refer to drug/alcohol detox upon discharge. 5. DVT prophylaxis - Lovenox 40 mg SQ q 24 hours. 6. Advance directives - Full code
--- NOTE | 2020-01-14 03:47 | HP ---
CHIEF COMPLAINT: Fever and body aches PCP: none HISTORY OF PRESENT ILLNESS: Mr. Ryan is a 39m w a h/o iVDA using 20 bags of heroin daily and untreated hep C who was transferred from [facility] to the ED for a c/o 102.2F fever and body aches. The patient reports his first onset of fever 2 days ago. He notes that he has been alone in his room at [facility] and has not come in contact with anyone with similar symptoms. He notes that he has had decreased appetite, fever, sweats, and chills. He notes that he has never experienced this in the past. He noted that he was diagnosed with hepatitis C many years ago and has never taken medication treatment for it nor has he reported any complications. The patient d enies any painful spotting or nodes on his hands or feet. The patient also denies cough, abdominal pain, chest pain, shortness of breath, headache, nausea or vomiting. 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 The patient denies ER course was notable for: (1) elevated LFTs Recent Travel: denies PAST MEDICAL HISTORY: PAST SURGICAL HISTORY: Social History: Smokin cigarettes per day for many years Alcohol: confirmed at [facility] for ETOH abuse Drugs: heroin Allergies No Known Allergies Allergy (Verified 12/23/14 14:43) HOME MEDICATIONS: Home Medications Medication Instructions Recorded NK [No Known Home Medication] 12/23/14 REVIEW OF SYSTEMS See Above PHYSICAL EXAMINATION Vital Signs - 24 hr 01/13/20 01/14/20 23:04 01:50 Temperature 102.5 F H 99.9 F H Pulse Rate 94 H Pulse Rate [ 73 Left Radial] Respiratory 20 20 Rate Blood Pressure 112/63 Blood Pressure 92/57 L [Right Arm] O2 Sat by Pulse 98 97 Oximetry (%) GENERAL: Awake, alert, and fully oriented HEAD: Normal with no signs of trauma. LUNGS: Breath sounds equal, clear to auscultation bilaterally. No wheezes, and no crackles. No accessory muscle use. HEART: Regular rate and rhythm, normal S1 and S2 without murmur, rub or gallop. ABDOMEN: Soft, nontender, not distended, normoactive bowel sounds, no guarding, no rebound, no masses. No hepatomegaly or splenomegaly. LOWER EXTREMITIES: 2+ pulses, warm, well-perfused. No calf tenderness. No peripheral edema. Laboratory Results - last 24 hr 01/14/20 01/14/20 01/14/20 00:15 00:15 00:15 WBC 4.9 RBC 4.33 Hgb 13.3 Hct 38.2 MCV 88.2 MCH 30.7 MCHC 34.9 RDW 14.3 Plt Count 190 D MPV 8.2 Absolute Neuts (auto) 4.1 Neutrophils % 83.4 H Lymphocytes % 5.8 L Monocytes % 7.6 Eosinophils % 2.7 Basophils % 0.5 Nucleated RBC % 0 PT with INR 16.40 H INR 1.40 H PTT (Actin FS) 31.3 Sodium 131 L Potassium 4.1 Chloride 98 Carbon Dioxide 27 Anion Gap 7 L BUN 12.4 Creatinine 0.9 Est GFR (CKD-EPI)AfAm 126.02 Est GFR (CKD-EPI)NonAf 108.73 Random Glucose 127 H Lactic Acid Calcium 8.2 L Total Bilirubin 0.8 AST 857 H ALT 837 H Alkaline Phosphatase 271 H Creatine Kinase 51 Troponin I < 0.02 Total Protein 6.7 Albumin 2.7 L Lipase 38 L 01/14/20 00:15 WBC RBC Hgb Hct MCV MCH MCHC RDW Plt Count MPV Absolute Neuts (auto) Neutrophils % Lymphocytes % Monocytes % Eosinophils % Basophils % Nucleated RBC % PT with INR INR PTT (Actin FS) Sodium Potassium Chloride Carbon Dioxide Anion Gap BUN Creatinine Est GFR (CKD-EPI)AfAm Est GFR (CKD-EPI)NonAf Random Glucose Lactic Acid 1.3 Calcium Total Bilirubin AST ALT Alkaline Phosphatase Creatine Kinase Troponin I Total Protein Albumin Lipase ASSESSMENT/PLAN: Mr. Ryan is a 39m w a h/o heroin abuse and untreated hep C who was transferred from [facility] to the ED for a c/o low grade fever and body aches. #Sepsis - possible infective endocarditis - Possible cause of sudden jump in elevated LFT due to acute hepatitis - hepatitis serology - EKG shows possible left atrial enlargement (P mitrale in lead II/V1) - blood cultures collected - covid test pending - IVF NS at 100ml - Intravenous empiric antibiotic treatment with vancomycin - UA - Consult ID - Dr. Barry #untreated hep c - elevated LFT - repeat CMP - possible hemolysis - hep A/B/C panel - Liver U/S - suggested to repeat LFT if positive BCX - Consult GI - Dr. Tran #Heroin/etoh withdrawal - confirm dosage of methadone - CIWA check periodically w vitals #FEN - IVF - monitor lytes - full diet #DVT PPX - lovenox sq #Dispo - admit to med surg #Advanced Directives - full code Family Medical History Family History: As Documented Visit type - Emergency Visit Emergency Visit: Yes ED Registration Date: 01/14/20 Care time: The patient presented to the Emergency Department on the above date and was hospitalized for further evaluation of their emergent condition. - New Patient This patient is new to me today: No - Critical Care Critical Care patient: No ATTENDING PHYSICIAN STATEMENT I saw and evaluated the patient. I reviewed the resident's note and discussed the case with the resident. I agree with the resident's findings and plan as documented. SUBJECTIVE: OBJECTIVE: ASSESSMENT AND PLAN:
--- OUTSIDE RECORDS SUMMARY | 2020-01-14 04:23 | XMS ---
:1980 Author Organization [facility] Support Name Relationship Address Phone UE, UNEMPLOYED Unavailable Unavailable Unavailable UE Unavailable Unavailable Unavailable OLGA KUMAR [address] [phone] [place] [address] Re-disclosure Warning The records that you are [...] is protected by Article 27-F of the [facility] Public Health law. If you continue you may haveaccess to information: Regarding HIV / AIDS; Provided by facilities licensed or operated by the [facility] Office of Mental Health; or Provided by the [facility] Office for People With Developmental Disabilities. If such information is present, then the following [facility] mandated warning applies: This information has [...] law may result in a fine or mcfp sentence or both. A general authorization for the release of medical or other information is NOT sufficient authorization for further disclosure. Insurance Providers Payer name Policy type Policy ID Covered Covered green party's Policy P lars / Coverage green party ID relationship to [employer] type [employer] HE[employer] [id number] SP [id number] FIRST Results ID Date Data Source [id number] 10/14/2019 12:00:00 PM EDT [place] Name Value Range Interpretation Code Description Data Deanne rce(s) Supporting Document(s ) [facility] This lab was ordered by RAYNA MOE and re ported by [facility]. Procedure
[2020-01-14 04:25] LABS: PH,URINE 6.5 (5.0-8.0); URINE APPEARANCE CLEAR; URINE BILIRUBIN NEGATIVE (NEGATIVE); URINE COLOR YELLOW; URINE GLUCOSE (UA) NEGATIVE (NEGATIVE); URINE KETONE NEGATIVE (NEGATIVE); URINE LEUK ESTERASE NEGATIVE (NEGATIVE); URINE NITRITE NEGATIVE (NEGATIVE); URINE PROTEIN NEGATIVE (NEGATIVE)
[2020-01-14] MEDS: SODIUM CHLORIDE 1,000 ML IV SCH ×2 (05:03→23:00)
[2020-01-14] MEDS ORDERED: VANCOMYCIN 1 GM in D5W (PRE-DOCKED) 1,000 MG/250 ML IVPB ONE (05:17)
[2020-01-14] MEDS ORDERED: METHADONE HCL 10 MG TABLET PO ONE (06:14)
[2020-01-14] MEDS ORDERED: METHADONE HCL 10 MG TABLET ONE (06:19)
--- NOTE | 2020-01-14 09:50 | EKG ---
Test Reason : Blood Pressure : / mmHG Vent. Rate : 086 BPM Atrial Rate : 086 BPM P-R Int : 140 ms QRS Dur : 088 ms QT Int : 372 ms P-R-T Axes : 067 085 055 degrees QTc Int : 445 ms NORMAL SINUS RHYTHM POSSIBLE LEFT ATRIAL ENLARGEMENT BORDERLINE ECG WHEN COMPARED WITH ECG OF 10-JAN-2020 21:09, NO SIGNIFICANT CHANGE WAS FOUND Confirmed by MD Dewey, Carlos ([id number]) on 01/14/2020 9:50:21 AM Referred By: Confirmed By:Carlos Palomo MD
[2020-01-14] MEDS ORDERED: ENOXAPARIN NA (PORCINE) 40 MG/0.4 ML DISP.SYRIN SQ ONE (10:14)
[2020-01-14] MEDS: ENOXAPARIN NA (PORCINE) 40 MG/0.4 ML DISP.SYRIN SQ SCH (10:14)
[2020-01-14] MEDS ORDERED: PIPERACILLIN/TAZOB 3.375 GM 3.375 GM in DEXTROSE 5%-WATER - 50 ML IVPB ONE (12:45)
[2020-01-14] MEDS ORDERED: PIPERACILLIN/TAZOB 3.375 GM 3.375 GM/50 ML BAG IVPB ONE (13:12)
--- NOTE | 2020-01-14 15:37 | ECHO ---
Version: 1 Name: DEUCE BAKER Exam: Adult Echocardiogram Study Date: 01/14/2020, 3:04 PM Age: 39 Years MMode/2D Measurements & Calculations IVSd: 0.73 cm LVIDd: 3.5 cm LVPWd: 0.92 cm Ao root diam: 3.1 cm LA dimension: 3.6 cm Tech Comments patient refused and he took all the leads off. Summary Statements The patient refused the study shortly after starting. Only several seconds of the parasternal long view without Doppler presented to me for review. The LV function and LA size appear normal in this limited view. No obvious pathology involving the mitral or aortic valves seen but they are not completely assessed . MD Carlos Palomo 01/14/2020, 3:37 PM Ordering Physician: Anthony Art Referring Physician: ANTHONY ART Performed By: Marisol Hart
--- NOTE | 2020-01-14 15:46 | PN ---
Physical Exam: SUBJECTIVE: Patient seen and examined this morning, visible anxious/agitated, endorses generalized pain and feelings of fever/chills. Denies CP, SoB, abdominal pain, changes in bowel/bladder habits. OBJECTIVE: Vital Signs Period Temp Pulse Resp BP Sys/Rebollar Pulse Ox Last 24 Hr 99.4 F-102.5 F 73-94 20-20 92-114/57-65 97-100 GENERAL: The patient is awake, alert, and fully oriented, in no acute distress. HEAD: Normal with no signs of trauma. EYES: PERRL, extraocular movements intact, sclera anicteric, conjunctiva clear. No ptosis. ENT: Ears normal, nares patent, oropharynx clear without exudates, moist mucous membranes. NECK: Trachea midline, full range of motion, supple. LUNGS: Breath sounds equal, clear to auscultation bilaterally, no wheezes, no crackles, no accessory muscle use. HEART: Regular rate and rhythm, S1, S2, 1/6-2/6 murmur heard primarily in TC/Mitral region ABDOMEN: Soft, tender to very deep palpation in RUQ, nondistended, normoactive bowel sounds, no guarding EXTREMITIES: No osler nodes, no splinter hemorhages, 2+ pulses, warm, well- perfused, no edema. NEUROLOGICAL: Normal speech, gait not observed. PSYCH: Anxious SKIN: Warm, dry, normal turgor, no rashes or lesions noted Laboratory Results - last 24 hr CBC, BMP 01/14/20 00:15 01/14/20 00:15 Active Medications Generic Name Dose Route Start Last Admin Trade Name Lennox PRN Reason Stop Dose Admin Enoxaparin Sodium 40 mg 01/14/20 10:00 01/14/20 10:14 Lovenox - SQ 40 mg DAILY [facility] Administration Sodium Chloride 1,000 mls @ 150 mls/hr 01/14/20 02:30 01/14/20 05:03 Normal Saline - IV 150 mls/hr ASDIR [facility] Administration Vancomycin HCl 1,000 mg in 250 mls @ 166.667 mls/hr 01/14/20 17:00 01/14/20 19:20 Vancomycin (Pre-Docked) IVPB 166.667 mls/hr Q12H [facility] Administration Protocol Ceftriaxone Sodium 2 gm/ 100 mls @ 200 mls/hr 01/14/20 16:45 01/14/20 17:28 Dextrose IVPB 200 mls/hr DAILY [facility] Administration Protocol ASSESSMENT/PLAN: 39 yo M w/ PMHx of IVDU (cocaine and heroin - in detox at [facility] 01/09 - last used before admission) and untreated Hep C, transferred from [facility] 2/ generalized weakness/aches and Tmax: 102.5. Admitted for sepsis 2/2 r/o bacteremia vs infective endocarditis and possible acute on chronic hepatitis c exacerbation. SEPSIS 2/2 POSSIBLE BACTEREMIA vs. INFECTIVE ENDOCARDITIS w/ Hx of IVDU -Fever w/ possible new murmur 04/07-05/08 @ TC/MV -CXR: No acute pathology -EKG: NSR w/ possibly LA enlargement w/ P mitrale present -ECHO: Inconclusive 05/04 ptn non-compliance. Ptn spoken w/ will consent to a 2nd Echo. -FU Blood Cx -FU Urine Cx: UA negative -Per ID: -c/w Vanc 1gm Q12 - Day 1; Trough Ordered before 4th dose -c/w Ceftriaxone 2gm Daily - Day 1 -FU HIV test ACUTE ON CHRONIC HEPATITIS C EXACERBATION -RUQ pain on deep palpation -AST/ALT: 857/837 -AlkPhos: 271 -Tbili: 0.8 -Abd US: Hepatomegaly with a slightly dense and coarse echotexture suggestive of mild fatty infiltration. Borderline thickening of the gallbladder wall without evidence of stones or pericholecystic free fluid. Nonvisualization of the pancreas likely due to overlying bowel gas. Consider follow up study. -Hepatitis Panel Pending: -Per GI: -Trend LFT, INR q12 -FU MRCP for eval of biliary tree -FU YURIY -FU Smooth Muscle Ab -Avoid hepatotoxic meds HISTORY OF HEROIN & COCAINE USE: CURRENTLY IN DETOX -Admitted to on 01/09 -Methadone Administered: 30 (01/09)-->25 (01/10) -->20 (01/11)-->15 (01/12) ------> 10mg in [facility] ED -Valium Administered: 10mg (01/11-) x1 -No Methadone treatment needed currently FEN -NS @ 150 -CMP, INR q12hr -Regular diet PPx -DVT: Lovenox 40 sq DISPO -Continue to monitor on med/surg Visit type - Emergency Visit Emergency Visit: Yes ED Registration Date: 01/14/20 Care time: The patient presented to the Emergency Department on the above date and was hospitalized for further evaluation of their emergent condition. - New Patient This patient is new to me today: Yes Date on this admission: 01/14/20 - Critical Care Critical Care patient: No - Discharge Referral Referred to [facility] Med P.C.: No ATTENDING PHYSICIAN STATEMENT I saw and evaluated the patient. I reviewed the resident's note and discussed the case with the resident. I agree with the resident's findings and plan as documented. SUBJECTIVE: OBJECTIVE: ASSESSMENT AND PLAN:
--- NOTE | 2020-01-14 16:09 | PN ---
Progress Note (short form) - Note Progress Note: FEVER R/O SEPSIS SECONDARY TO IDU ACUTE HEPATITIS AWAIT C/S EMPIRIC VANCO/ CEFTRIAXONE HEP PROFILE HIV TEST GI EVALUATION
--- NOTE | 2020-01-14 16:32 | CONS ---
DATE OF CONSULTATION: DATE OF DICTATION: 01/14/2020 INFECTIOUS DISEASE CONSULTATION HISTORY OF PRESENT ILLNESS: The patient is a 39-year-old male with a history of active injection drug use, evaluated for fever. The patient was admitted to detox on January 10, 2020. His course was complicated by fever to 102.2, associated with generalized body ache. He was transferred to the emergency room for further evaluation. The patient complains of fever and generalized body pain. He states he does use his own needles, does not share needles. Denied any skin or soft tissue infection secondary to injection drug use. States he tested HIV negative within the past couple of weeks. COVID-19 PCR is pending. He denies any ill contacts. His course has been complicated by elevated liver enzymes. He denies alcohol use. PAST MEDICAL HISTORY: Positive for active injection drug use, history of hepatitis C (untreated). ALLERGIES: No known allergies. LABORATORY DATA: White count 4.9, neutrophils 83, lymphocytes 5, monocytes 7, hematocrit 38.2, platelets 190. BUN 12, creatinine 0.9, total bilirubin 0.8, alkaline phosphatase 271, AST 857, ALT 837, lipase 38. Urinalysis negative. COVID-19 from January 09 negative. HIV test is ordered. Cultures are pending. IMAGING: Chest x-ray negative for acute infiltrate. Abdominal sonogram: Hepatomegaly. Thickened gallbladder, without evidence of pericholecystic fluid or stones. PHYSICAL EXAMINATION: General: He is supine in the stretcher, complaining of generalized pain. Vital Signs: Temperature 99.4, Tmax 102.5. Blood pressure 114/65, pulse 88 and regular, respirations 20 per minute. HEENT: Sclerae anicteric. Oropharynx negative for thrush. Neck: Supple. No palpable nodes. Cardiac: Heart sounds S1, S2. No murmur. Lungs: Clear. Abdomen: Soft. No right upper quadrant tenderness. No mass, rebound or rigidity. Extremities: Negative for edema. No skin infection noted. IMPRESSION: 1. Fever, rule out sepsis secondary to injection drug use. 2. Acute hepatitis. PLAN: Await cultures. Await repeat COVID-19 PCR. Empirical antibiotic coverage with vancomycin and ceftriaxone. HIV test. Hepatitis panel. GI evaluation. Thank you for the kind referral. KALPANA LUCIO M.D. [id number]
--- NOTE | 2020-01-14 17:09 | PN ---
Progress Note (short form) - Note Progress Note: GI CONSULT DICTATED -- MRCP ORDERED TO FURTHER EVALUATE THE BILIARY TREE -- C/W ABX -- FURTHER EVALUATION OF ENDOCARDITIS PER PRIMARY MEDICAL TEAM -- F/U CULTURES -- TREND LFT / INR Q12 -- AVOID HEPATOTOXIC MEDICATIONS -- F/U LIVER SEROLOGY
[2020-01-14] MEDS ORDERED: CEFTRIAXONE 2 GM/100 ML BAG IVPB ONE (17:28)
[2020-01-14] MEDS: CEFTRIAXONE 2 GM in DEXTROSE 5%-WATER 100 ML IVPB SCH (17:28)
--- NOTE | 2020-01-14 17:58 | CONS ---
DATE OF CONSULTATION: DATE OF DICTATION: 01/14/2020 GASTROINTESTINAL CONSULTATION HISTORY OF PRESENT ILLNESS: The patient is a 39-year-old man with a history of IV drug abuse, of heroin daily, untreated hepatitis C, who was transferred from [facility] to the emergency room with complaints of 102 fever and body aches. Patient is an extremely poor historian and states he is not feeling well, and finally discloses he has been experiencing nausea and vomiting but denies any abdominal pain. He does admit to never taking any medications for hepatitis C. REVIEW OF SYSTEMS: Limited, as the patient is not very cooperative. PAST MEDICAL AND SURGICAL HISTORY: As listed in the HPI. ALLERGIES: No known drug allergies. SOCIAL HISTORY: Smokes 15 cigarettes per day, confirmed alcohol abuse, and uses heroin as mentioned above. HOME MEDICATIONS: None. PHYSICAL EXAMINATION: Vital Signs: Temperature on admission 102.5, presently 99.4, pulse 88, blood pressure 114/65, respiratory rate 12, oxygen saturation 100% on room air. General: In no acute distress. HEENT: Anicteric sclerae. Cardiovascular: S1, S2, regular rate and rhythm. Lungs: Clear anteriorly. Abdomen: Soft, nontender. Extremities: No edema. LABORATORY: White blood cell count 4.9, hemoglobin and hematocrit 13/38, MCV 88, platelet count 190, INR 1.4. Sodium 131, potassium 4.1, BUN/creatinine 12/0.9, total bilirubin 0.8, AST 857, ALT 837, alkaline phosphatase 271, lipase 38. Urine is negative. Serology is 4. Hepatitis A, B, and C are pending. COVID-19 is also pending. Cultures are pending with the blood and urine. He had a chest x-ray which revealed no acute chest pathology. Also had abdominal ultrasound which revealed hepatomegaly slightly dense infiltration, borderline thickening of the gallbladder wall without evidence of stones or pericholecystic fluid. A followup would be helpful. IMPRESSION: Transaminitis, hepatocellular pattern with associated fever. Differential diagnosis includes an obstructive process/ biliary process / endocardititis/ sepsis. RECOMMENDATION: N.p.o., IV fluids, MRCP to further evaluate the biliary tree. He has been started on ceftriaxone and vancomycin, which should be continued at this time. Will also complete the evaluation for chronic and inherited liver disease. He should be counseled for alcohol and heroin abstinence. It is also unclear when his last drink was. Avoid hepatotoxic medications. Trend LFTs, and INR q.12. Will follow up. DO MARY DURAN/[id number] MTDD
[2020-01-14] MEDS ORDERED: VANCOMYCIN 1 GRAM (PRE-DOCKED) 1,000 MG/250 ML BAG IVPB ONE (19:05)
[2020-01-14] MEDS: VANCOMYCIN 1 GRAM (PRE-DOCKED) 1,000 MG/250 ML BAG IVPB SCH (19:20)
[2020-01-15 02:11] VITALS: BMI 21.6
[2020-01-15] MEDS ORDERED: IBUPROFEN 400 MG TABLET (FP) PO ONE (03:00)
[2020-01-15] MEDS: VANCOMYCIN 1 GRAM (PRE-DOCKED) 1,000 MG/250 ML BAG IVPB SCH ×2 (06:00→17:20)
[2020-01-15] MEDS: SODIUM CHLORIDE 1,000 ML IV SCH (06:40)
[2020-01-15 08:08] LABS: BASO % 1.2 % (0-2.0); HEMATOCRIT 37.6 % (35.4-49); HEMOGLOBIN 12.8 GM/dL (11.7-16.9); MCH 30.6 pg (25.7-33.7); MEAN PLT VOLUME 8.6 fl (7.5-11.1); MONO % 10.1 % (3.8-10.2); NEUT % 65.7 % (42.8-82.8); PLATELET COUNT 151 K/MM3 (134-434); RBC 4.18 M/mm3 (4.00-5.60); WHITE BLOOD COUNT 2.7 K/mm3 (4.0-10.0)
[2020-01-15 08:24] LABS: ALBUMIN 2.5 g/dl (3.4-5.0); BILIRUBIN,TOTAL 2.2 mg/dL (0.2-1); BLOOD UREA NITROGEN 11.9 mg/dL (7-18); MAGNESIUM 1.9 mg/dL (1.8-2.4); PHOSPHOROUS 2.8 mg/dL (2.5-4.9); POTASSIUM 4.2 mmol/L (3.5-5.1); TOT PROT 6.1 g/dl (6.4-8.2)
[2020-01-15] MEDS ORDERED: MELATONIN 5 MG TABLETS PO SCH ×2 (09:00→22:00)
[2020-01-15 10:36] LABS: INR 1.45 (0.83-1.09); PROTHROMBIN TIME (PATIENT) 17.4 SEC (9.7-13.0)
[2020-01-15] MEDS ORDERED: DEXTROSE 5%-WATER 100 ML IVPB ONE ×3 (11:00→19:46)
[2020-01-15] MEDS: ENOXAPARIN NA (PORCINE) 40 MG/0.4 ML DISP.SYRIN SQ SCH (11:00)
[2020-01-15] MEDS: CEFTRIAXONE 2 GM in DEXTROSE 5%-WATER 100 ML IVPB SCH (11:00)
[2020-01-15] MEDS ORDERED: CEFEPIME 1 GM in DEXTROSE 5%-WATER 100 ML IVPB SCH (11:45)
--- NOTE | 2020-01-15 12:20 | ECHO ---
Name: DEUCE BAKER Exam:Adult Echocardiogram Study Date: 01/15/2020 09:12 AM Age: 39 yrs Reason For Study: R/O Endocarditis Height: 69 in Weight: 165 lb BSA: 1.9 m2 MMode/2D Measurements & Calculations IVSd: 0.99 cm Ao root diam: 2.7 cm LVIDd: 4.4 cm LA dimension: 3.8 cm LVIDs: 2.9 cm LVPWd: 1.0 cm LVPWs: 1.6 cm EDV(Teich): 85.9 ml ESV(Teich): 32.8 ml LVOT diam: 2.1 cm LAV (MOD-bp): 53.0 ml TAPSE: 2.0 cm RV S Juan Daniel: 10.7 cm/sec Doppler Measurements & Calculations MV E max juan daniel: 55.8 cm/sec Ao V2 max: 136.9 cm/sec MV A max juan daniel: 46.4 cm/sec Ao max P.5 mmHg MV E/A: 1.2 KONSTANTIN(V,D): 2.4 cm2 MV dec time: 0.14 sec LV V1 max P.6 mmHg TR max juan daniel: 202.7 cm/sec LV V1 max: 95.3 cm/sec TR max P.7 mmHg PA V2 max: 106.6 cm/sec PI end-d juan daniel: 91.6 cm/sec PA max P.5 mmHg Med Peak E' Juan Daniel: 8.4 cm/sec Med E/e': 6.6 Lat Peak E' Juan Daniel: 12.1 cm/sec Lat E/e': 4.6 Procedure A complete two-dimensional transthoracic echocardiogram was performed (2D, M-mode, Doppler and color flow Doppler). Left Ventricle The left ventricular size, thickness and function are normal. Ejection Fraction = 55-60%. The left ve ntricular wall motion is normal. Right Ventricle The right ventricle is normal in size and function. Atria Normal left and right atrial size and function. Mitral Valve There is no mitral regurgitation noted. Tricuspid Valve There is trace tricuspid regurgitation. Right ventricular systolic pressure is normal. Aortic Valve No hemodynamically significant valvular aortic stenosis. No aortic regurgitation is present. Pulmonic Valve There is no pulmonic valvular regurgitation. Great Vessels The aortic root is normal size. Pericardium/Pleura There is no pericardial effusion. Interpretation Summary The left ventricular size, thickness and function are normal The right ventricle is normal in size and function. There is trace tricuspid regurgitation. MD Yg Fishman 01/15/2020 12:20 PM
[2020-01-15] MEDS ORDERED: CEFEPIME HCL 1 GM VIAL (RESTRICTED TO ID) ONE ×2 (12:40→19:46)
--- NOTE | 2020-01-15 13:57 | PN ---
Physical Exam: SUBJECTIVE: Patient seen and examined, states his generalized weakness has improved, and he is having less subjective fever and chills and diaphoresis (Tmax overnight 102.5). However, endorses decreased appetite and additional hx of 15 lb weight loss in 3 weeks. OBJECTIVE: Vital Signs Period Temp Pulse Resp BP Sys/Rebollar Pulse Ox Last 24 Hr 98.1 F-102.5 F 57-76 18-20 95-124/52-70 96-100 GENERAL: The patient is awake, alert, and fully oriented, in no acute distress. HEAD: Normal with no signs of trauma. EYES: PERRL, extraocular movements intact, sclera anicteric, conjunctiva clear. No ptosis. ENT: Ears normal, nares patent, oropharynx clear without exudates, moist mucous membranes. NECK: Trachea midline, full range of motion, supple. LUNGS: Breath sounds equal, clear to auscultation bilaterally, no wheezes, no crackles, no accessory muscle use. HEART: Regular rate and rhythm, S1, S2, previous murmur no longer heard ABDOMEN: Soft, tender to very deep palpation in RUQ, nondistended, normoactive bowel sounds, no guarding EXTREMITIES: No osler nodes, no splinter hemorhages, 2+ pulses, warm, well- perfused, no edema. NEUROLOGICAL: Normal speech, gait not observed. PSYCH: Normal mood and affect SKIN: Warm, dry, normal turgor, no rashes or lesions noted Laboratory Results - last 24 hr 01/14/20 01/14/20 01/15/20 04:20 06:40 06:40 WBC 2.7 L RBC 4.18 Hgb 12.8 Hct 37.6 MCV 90.0 MCH 30.6 MCHC 34.0 RDW 14.0 Plt Count 151 D MPV 8.6 Absolute Neuts (auto) 1.8 Neutrophils % 65.7 D Lymphocytes % 18.0 D Monocytes % 10.1 Eosinophils % 5.0 H D Basophils % 1.2 Nucleated RBC % 0 PT with INR INR Sodium Potassium Chloride Carbon Dioxide Anion Gap BUN Creatinine Est GFR (CKD-EPI)AfAm Est GFR (CKD-EPI)NonAf Random Glucose Calcium Phosphorus Magnesium Total Bilirubin AST ALT Alkaline Phosphatase Total Protein Albumin Acetaminophen < 2.0 COVID-19 (SOFIA) Not detected HIV Ag/Ab Combo Qual HIV-1 Antibody HIV Ag/Ab Interpret HIV-2 Antibody HIV 1&2 Ag/Ab, 4th Gen HIV 1&2 Ab Final Interp 01/15/20 01/15/20 01/15/20 06:40 06:40 09:26 WBC RBC Hgb Hct MCV MCH MCHC RDW Plt Count MPV Absolute Neuts (auto) Neutrophils % Lymphocytes % Monocytes % Eosinophils % Basophils % Nucleated RBC % PT with INR INR Sodium 135 L Potassium 4.2 Chloride 101 Carbon Dioxide 28 Anion Gap 6 L BUN 11.9 Creatinine 1.0 Est GFR (CKD-EPI)AfAm 110.94 Est GFR (CKD-EPI)NonAf 95.72 Random Glucose 81 Calcium 8.0 L Phosphorus 2.8 Magnesium 1.9 Total Bilirubin 2.2 H AST 2204 H ALT 2054 H Alkaline Phosphatase 235 H Total Protein 6.1 L Albumin 2.5 L Acetaminophen COVID-19 (SOFIA) HIV Ag/Ab Combo Qual Negative HIV-1 Antibody Cancelled HIV Ag/Ab Interpret Cancelled HIV-2 Antibody Cancelled HIV 1&2 Ag/Ab, 4th Gen Cancelled HIV 1&2 Ab Final Interp Cancelled 01/15/20 10:05 WBC RBC Hgb Hct MCV MCH MCHC RDW Plt Count MPV Absolute Neuts (auto) Neutrophils % Lymphocytes % Monocytes % Eosinophils % Basophils % Nucleated RBC % PT with INR 17.40 H INR 1.45 H Sodium Potassium Chloride Carbon Dioxide Anion Gap BUN Creatinine Est GFR (CKD-EPI)AfAm Est GFR (CKD-EPI)NonAf Random Glucose Calcium Phosphorus Magnesium Total Bilirubin AST ALT Alkaline Phosphatase Total Protein Albumin Acetaminophen COVID-19 (SOFIA) HIV Ag/Ab Combo Qual HIV-1 Antibody HIV Ag/Ab Interpret HIV-2 Antibody HIV 1&2 Ag/Ab, 4th Gen HIV 1&2 Ab Final Interp Active Medications Generic Name Dose Route Start Last Admin Trade Name Freq PRN Reason Stop Dose Admin Enoxaparin Sodium 40 mg 01/14/20 10:00 01/15/20 11:00 Lovenox - SQ 40 mg DAILY ANDERSON Administration Sodium Chloride 1,000 mls @ 150 mls/hr 01/14/20 02:30 01/15/20 06:40 Normal Saline - IV 150 mls/hr ASDIR ANDERSON Administration Vancomycin HCl 1,000 mg in 250 mls @ 166.667 mls/hr 01/14/20 17:00 01/15/20 06:00 Vancomycin (Pre-Docked) IVPB 166.667 mls/hr Q12H ANDERSON Administration Protocol Cefepime HCl 1 gm/ Dextrose 100 mls @ 100 mls/hr 01/15/20 11:45 01/15/20 12:56 IVPB 100 mls/hr Q8H-IV ANDERSON Administration Protocol Melatonin 10 mg 01/15/20 22:00 Melatonin PO HS ANDERSON ASSESSMENT/PLAN: 39 yo M w/ PMHx of IVDU (cocaine and heroin - in detox at [facility] 01/09 - last used before admission) and untreated Hep C, transferred from [facility] 2/2 generalized weakness/aches and Tmax: 102.5. Admitted for sepsis 2/2 r/o bacteremia vs infective endocarditis and possible acute on chronic hepatitis c exacerbation. SEPSIS 2/2 POSSIBLE BACTEREMIA vs. INFECTIVE ENDOCARDITIS w/ Hx of IVDU -102.5 Tmax overnight -ECHO: EF 55-60%, trace triscuspid regurg -FU Blood Cx -FU Urine Cx: UA negative -Per ID: -c/w Vanc 1gm Q12 - Day 2; Trough -Start Cefepime - Day 1 -HIV test: NEGATIVE ACUTE ON CHRONIC HEPATITIS C EXACERBATION -RUQ pain on deep palpation -AST/ALT: 857/837 -->2204/2054 -AlkPhos: 271 -->235 -Tbili: 0.8 --> 2.2 -Abd US: Hepatomegaly with a slightly dense and coarse echotexture suggestive of mild fatty infiltration. Borderline thickening of the gallbladder wall without evidence of stones or pericholecystic free fluid. Nonvisualization of the pancreas likely due to overlying bowel gas. Consider follow up study. -Acetaminophen level: Negative -Hepatitis Panel Pending: -Per GI: -Trend LFT, INR q12: 1.4 --> 1.45 -FU MRCP for eval of biliary tree -FU YURIY -FU Smooth Muscle Ab -Avoid hepatotoxic meds -FU : EBV -FU: CMV -FU: Antimitochondrial Ab -FU: Ceruloplasmin -FU: Total and Indirect Bili HISTORY OF HEROIN & COCAINE USE: CURRENTLY IN DETOX -Admitted to on 01/09 -Methadone Administered: 30 (01/09)-->25 (01/10) -->20 (01/11)-->15 (01/12) ------> 10mg in [facility] ED -Valium Administered: 10mg (01/11-) x1 -No Methadone treatment needed currently -No Valium administered -Melatonin 10mg for sleep FEN -NS @ 150 -CMP, INR q12hr -Regular diet PPx -DVT: Lovenox 40 sq DISPO -Continue to monitor on med/surg ATTENDING PHYSICIAN STATEMENT I saw and evaluated the patient. I reviewed the resident's note and discussed the case with the resident. I agree with the resident's findings and plan as documented. SUBJECTIVE: OBJECTIVE: ASSESSMENT AND PLAN:
[2020-01-15 14:20] LABS: BASO % 0.9 % (0-2.0); EOS % 6.7 % (0-4.5); HEMATOCRIT 37.5 % (35.4-49); HEMOGLOBIN 12.5 GM/dL (11.7-16.9); LYMPH % 16.3 % (8-40); MCH 29.7 pg (25.7-33.7); MCHC 33.4 g/dl (32.0-35.9); MEAN CELL VOLUME 88.7 fl (80-96); MEAN PLT VOLUME 8.4 fl (7.5-11.1); MONO % 13.1 % (3.8-10.2); PLATELET COUNT 138 K/MM3 (134-434); RBC 4.23 M/mm3 (4.00-5.60); RDW 14.1 % (11.9-15.9); WHITE BLOOD COUNT 3.4 K/mm3 (4.0-10.0)
--- NOTE | 2020-01-15 14:47 | PN ---
Teaching Attending Note Name of Resident: Anthony Art ATTENDING PHYSICIAN STATEMENT I saw and evaluated the patient. I reviewed the resident's note and discussed the case with the resident. I agree with the resident's findings and plan as documented. SUBJECTIVE: Patient resting, comfortable not in any pain/distress has not eaten 2/2 poor appetite/malaise OBJECTIVE: Vital Signs Period Temp Pulse Resp BP Sys/Rebollar Pulse Ox Last 24 Hr 98.1 F-102.5 F 57-75 18-20 95-109/52-66 96-98 As per resident note Labs/Imaging reviewed ASSESSMENT AND PLAN: 39 y/o M with Hx of IVDA, Hep C who presents for fever/malaise and body aches. Fever/Malaise Unclear etiology Patient noted to be febrile overnight Continue BS abx at this time Blood Cx NGTD f/u Echo given murmur on exam in setting of IVDA Acute Liver Failure: DDx: Viral Hepatits, unlikely ischemic/Toxic RUQ US reviewed: Notable for heaptomegaly f.u hepatitis panel continue supportive treatment, continue to monitor LFT Appreciate GI Recs MELD: 16 f.u autoimmune workup IVDA: s/p Methadone taper Patient with no signs of active withdrawal continue to monitor PPx: Lovenox
--- NOTE | 2020-01-15 15:30 | PN ---
Progress Note, Physician History of Present Illness: C/O ANOREXIA NO N/V NO DIARRHEA TEMPS DOWN WBC IMPROVED 3.4 ANC 2.1 MARKED TRANSAMINITIS NOTED HIV (-) COVID (-) - Current Medication List Current Medications: Active Medications Enoxaparin Sodium (Lovenox -) 40 mg SQ DAILY ANDERSON Last Admin: 01/15/20 11:00 Dose: 40 mg Documented by: Sodium Chloride (Normal Saline -) 1,000 mls @ 150 mls/hr IV ASDIR ANDERSON Last Admin: 01/15/20 06:40 Dose: 150 mls/hr Documented by: Vancomycin HCl (Vancomycin (Pre-Docked)) 1,000 mg in 250 mls @ 166.667 mls/hr IVPB Q12H ANDERSON; Protocol Last Admin: 01/15/20 06:00 Dose: 166.667 mls/hr Documented by: Cefepime HCl 1 gm/ Dextrose 100 mls @ 100 mls/hr IVPB Q8H-IV ANDERSON; Protocol Last Admin: 01/15/20 12:56 Dose: 100 mls/hr Documented by: Melatonin (Melatonin) 10 mg PO HS ANDERSON - Objective Vital Signs: Vital Signs Temperature 99.3 F 01/15/20 14:53 Pulse Rate 64 01/15/20 14:53 Respiratory Rate 18 01/15/20 14:53 Blood Pressure 103/62 01/15/20 14:53 O2 Sat by Pulse Oximetry (%) 97 01/15/20 14:53 Constitutional: Yes: No Distress Eyes: Yes: Conjunctiva Clear Cardiovascular: Yes: Regular Rate and Rhythm Respiratory: Yes: CTA Bilaterally Gastrointestinal: Yes: Normal Bowel Sounds, Soft. No: Tenderness Edema: No Labs: CBC, BMP 01/15/20 13:25 01/15/20 06:40 INR, PTT INR 1.45 (0.83-1.09) H 01/15/20 10:05 Assessment/Plan FEVER ? SOURCE ACUTE HEPATITIS LEUKOPENIA POLYSUBSTANCE ABUSE AWAIT C/S CONTINUE EMPIRIC VANCOMYCIN/ CEFEPIME
--- NOTE | 2020-01-15 16:20 | PN.GI ---
GI Progress Note Subjective: Denies abdominal pain No acute events Transaminases as well as bilirubin continue to rise States that he was once told that he had hepatitis C (? if he had cleared the virus previously) Denies sexual promiscuity. In monogamous relationship with . No recent sexuial activity. No family history of liver disease / autoimmune disease - Objective Vital Signs: Vital Signs Temperature 99.3 F 01/15/20 14:53 Pulse Rate 64 01/15/20 14:53 Respiratory Rate 18 01/15/20 14:53 Blood Pressure 103/62 01/15/20 14:53 O2 Sat by Pulse Oximetry (%) 97 01/15/20 14:53 Constitutional: Calm Eyes: Yes: Sclera Icterus Cardiovascular: Yes: Regular Rate and Rhythm Respiratory: Yes: CTA Bilaterally Gastrointestinal Inspection: No: Distention ...Auscultate: Yes: Normoactive Bowel Sounds ...Palpate: Yes: Soft, Tenderness (Mild TTP RUQ) ...Percussion: No: Tympanitic Edema: No (No LE edema) Neurological: Yes: Alert. No: Asterixis Labs: CBC, BMP 01/15/20 13:25 01/15/20 06:40 INR, PTT INR 1.45 (0.83-1.09) H 01/15/20 10:05 Hepatic Panel Total Bilirubin 2.2 mg/dL (0.2-1) H 01/15/20 06:40 AST 2204 U/L (15-37) H 01/15/20 06:40 ALT 2054 U/L (13-61) H 01/15/20 06:40 Alkaline Phosphatase 235 U/L (45-117) H 01/15/20 06:40 Albumin 2.5 g/dl (3.4-5.0) L 01/15/20 06:40 Problem List - Problems (1) Acute hepatitis Assessment/Plan: Acute hepatitis Given active IVDU, Reinfection with hepatitis C (given his description of previously cleared hepatitis C), acute hepatitis B would need to be higher in differential MRI pending, however no ductal dilatation or stones noted on abdominal US Hepatitis serologies pending Advised transfer to liver center for more expeditious work-up including liver biopsy if needed D/W Medical attending Dr. Talbot Code(s): B17.9 - ACUTE VIRAL HEPATITIS, UNSPECIFIED
--- NOTE | 2020-01-15 18:01 | DS ---
Physical Exam: SUBJECTIVE: Patient seen and examined, states his generalized weakness has improved, and he is having less prominent subjective fever/chills, still endorses diaphoresis (Tmax overnight 102.5). However, endorses decreased appetite and additional hx of 15 lb weight loss in 3 weeks. OBJECTIVE: Vital Signs Period Temp Pulse Resp BP Sys/Rebollar Pulse Ox Last 24 Hr 98.1 F-102.5 F 57-75 18-20 95-109/52-66 96-98 PHYSICAL EXAM GENERAL: The patient is awake, alert, and fully oriented, in no acute distress. HEAD: Normal with no signs of trauma. EYES: PERRL, extraocular movements intact, sclera anicteric, conjunctiva clear. No ptosis. ENT: Ears normal, nares patent, oropharynx clear without exudates, moist mucous membranes. NECK: Trachea midline, full range of motion, supple. LUNGS: Breath sounds equal, clear to auscultation bilaterally, no wheezes, no crackles, no accessory muscle use. HEART: Regular rate and rhythm, S1, S2, no rubs gallops or murmurs noted. ABDOMEN: Soft, tender to very deep palpation in RUQ, nondistended, normoactive bowel sounds, no guarding EXTREMITIES: No osler nodes, no splinter hemorhages, 2+ pulses, warm, well- perfused, no edema. NEUROLOGICAL: Normal speech, gait not observed. PSYCH: Normal mood and affect SKIN: Warm, dry, normal turgor, no rashes or lesions noted LABS Laboratory Results - last 24 hr 01/14/20 01/14/20 01/15/20 04:20 06:40 06:40 WBC 2.7 L RBC 4.18 Hgb 12.8 Hct 37.6 MCV 90.0 MCH 30.6 MCHC 34.0 RDW 14.0 Plt Count 151 D MPV 8.6 Absolute Neuts (auto) 1.8 Neutrophils % 65.7 D Lymphocytes % 18.0 D Monocytes % 10.1 Eosinophils % 5.0 H D Basophils % 1.2 Nucleated RBC % 0 PT with INR INR Sodium Potassium Chloride Carbon Dioxide Anion Gap BUN Creatinine Est GFR (CKD-EPI)AfAm Est GFR (CKD-EPI)NonAf Random Glucose Calcium Phosphorus Magnesium Total Bilirubin AST ALT Alkaline Phosphatase Total Protein Albumin Acetaminophen < 2.0 COVID-19 (SOFIA) Not detected HIV Ag/Ab Combo Qual HIV-1 Antibody HIV Ag/Ab Interpret HIV-2 Antibody HIV 1&2 Ag/Ab, 4th Gen HIV 1&2 Ab Final Interp 01/15/20 01/15/20 01/15/20 06:40 06:40 09:26 WBC RBC Hgb Hct MCV MCH MCHC RDW Plt Count MPV Absolute Neuts (auto) Neutrophils % Lymphocytes % Monocytes % Eosinophils % Basophils % Nucleated RBC % PT with INR INR Sodium 135 L Potassium 4.2 Chloride 101 Carbon Dioxide 28 Anion Gap 6 L BUN 11.9 Creatinine 1.0 Est GFR (CKD-EPI)AfAm 110.94 Est GFR (CKD-EPI)NonAf 95.72 Random Glucose 81 Calcium 8.0 L Phosphorus 2.8 Magnesium 1.9 Total Bilirubin 2.2 H AST 2204 H ALT 2054 H Alkaline Phosphatase 235 H Total Protein 6.1 L Albumin 2.5 L Acetaminophen COVID-19 (SOFIA) HIV Ag/Ab Combo Qual Negative HIV-1 Antibody Cancelled HIV Ag/Ab Interpret Cancelled HIV-2 Antibody Cancelled HIV 1&2 Ag/Ab, 4th Gen Cancelled HIV 1&2 Ab Final Interp Cancelled 01/15/20 01/15/20 10:05 13:25 WBC 3.4 L RBC 4.23 Hgb 12.5 Hct 37.5 MCV 88.7 MCH 29.7 MCHC 33.4 RDW 14.1 Plt Count 138 MPV 8.4 Absolute Neuts (auto) 2.1 Neutrophils % 63.0 Lymphocytes % 16.3 Monocytes % 13.1 H Eosinophils % 6.7 H Basophils % 0.9 Nucleated RBC % 0 PT with INR 17.40 H INR 1.45 H Sodium Potassium Chloride Carbon Dioxide Anion Gap BUN Creatinine Est GFR (CKD-EPI)AfAm Est GFR (CKD-EPI)NonAf Random Glucose Calcium Phosphorus Magnesium Total Bilirubin AST ALT Alkaline Phosphatase Total Protein Albumin Acetaminophen COVID-19 (SOFIA) HIV Ag/Ab Combo Qual HIV-1 Antibody HIV Ag/Ab Interpret HIV-2 Antibody HIV 1&2 Ag/Ab, 4th Gen HIV 1&2 Ab Final Interp HOSPITAL COURSE: Date of Admission:01/14/20 CXR: Clear lungs. No acute process seen. EKG: NSR @86, w/ possible left atrial enlargement. Qtc 445 ECHO: EF 55-60%, LV size thickness and function normal. RV function normal Abd US: Hepatomegaly with a slightly dense and coarse echotexture suggestive of mild fatty infiltration. Borderline thickening of the gallbladder wall without evidence of stones or pericholecystic free fluid. Nonvisualization of the pancreas likely due to overlying bowel gas. Consider follow up study. Urine Cx: No growth: FINAL Blood Cx: No growth @ 24 hours Date of Discharge: 01/15/20 Mr. Ryan is a 39 yo M, born in the [facility] w/ PMHx of IVDU (cocaine and heroin) daily and Hep C (unknown if treated, unknown when diagnosed). Ptn was previously admitted to [facility] for heroin detoxification and was on Methadone 30-->25-->20-->15 (decreased per day), with 10mg given on the day of admission at [facility] ED, as well as 10mg of valium. Pthaley was transferred following a Tmax of 102.2F and generalized body aches. The patient reports his first onset of fever was 2 prior to admission. He notes that he has had decreased appetite, fever, sweats, and chills. He notes that he has never experienced this in the past. He notes that he has been alone in his room [facility] and has not come in contact with anyone with similar symptoms. The patient denies any painful spotting or nodes on his hands or feet. The patient also denies cough, abdominal pain, chest pain, shortness of breath, changes in bowel/bladder habits. ROS was negative for any other sexual partners except his /partner. States both are monogamous, Does not use condoms. He notes that he lives in [place] with his family, however is often homeless. Pthaley has a partner who is currently . 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 The patient's ED course was notable for a Tmax 102.5F and AST/ALT 857/837, Tbili 0.8 and no elevated white blood count. Patient was admitted to the floors where ID and GI were consulted and the patient was started on Vanc and Ceftriaxone for an initial worked up for r/o Acute viral hepatitis, r/o endocarditis 2/2 IVDU vs bacteremia 2/2 IVDU, as well as possible HIV infection Full panels of labs were drawn: -COVID: NEGATIVE -Acetaminophen Level: Negative -Hep A, B, C -HIV: NEGATIVE -YURIY -Anti-Smooth Muscle -Ceruloplasmin -Anti-Mitochondrial Ab -EBV -CMV Results are currently pending on labs without values. Overnight the patient had a Tmax of 102.5, w/ a decrease in WBC from 4.9 on admission to 2.6 w/ ANC 1.8. Clinically patient stated he was feeling better than the previous day. Further labs showed increased AST/ALT to 2204/2054 w/ AlkPhos 271--? 235 and Tbili 0.8-->2.2. INR was also trended q12, trending 1.40--1.45. Meld score was calculated to be 17. Due to decreasing WBC, ID switched from Ceftriaxone to Cefepime for psuedomonal coverage. Repeat labs were done to confirm the blood draw and had a WBC of 3.4 with eosinophelia and increased monocytes. Methadone 5mg (last dose) was not administered because patient was not having withdrawal symptoms. Valium was not administered for the same reason (which the patient used for sleep) Following discussion with GI about rising Tbili levels, and very elevated LFTs, and uptrending INR, decision was made to contact [facility] for transfer in case further work up was needed, included but not limited to liver bx. Minutes to complete discharge: 36 Discharge Summary Problems reviewed: Yes Reason For Visit: FEVER,CHRONIC HEPATITIS C WITHOUT HEPATIC COMA Current Active Problems Acute hepatitis (Acute) Elevated LFTs (Acute) Sepsis (Acute) Hep C w/o coma, chronic (Chronic) - Instructions - Home Medications Comprehensive Discharge Medication List: Ambulatory Orders NK [No Known Home Medication] 12/23/14 This patient is new to me today: No Emergency Visit: No Critical Care patient: No - Discharge Referral Referred to [facility] No ATTENDING PHYSICIAN STATEMENT I saw and evaluated the patient. I reviewed the resident's note and discussed the case with the resident. I agree with the resident's findings and plan as documented. SUBJECTIVE: OBJECTIVE: ASSESSMENT AND PLAN:
[2020-01-15 20:43] VITALS: BP 113/63; PULSE 84; TEMP 102.2
[2020-01-17 01:07] LABS: HEP B CORE AB, TOT Positive (Negative)
[2020-01-17 07:07] LABS: CMV IgM < 30.0 AU/mL (0.0-29.9)
[2020-01-17 14:10] LABS: EPSTEIN BARR ANTIBODY IgM <36.0 U/mL (0.0-35.9)
== END 2020-01-15 21:06 | disposition short-term general hospital (02) | DRG 720 ==
LOC: JER 23:02 → JERBED 01-14 03:14 → J6S 01-14 21:46
PROVIDERS: ADMIT Internal Medicine; ATTEND Internal Medicine
PROC: HZ91ZZZ Pharmacotherapy for Substance Abuse Treatment, Methadone Maintenance (ICD-10-PCS; principal; 2020-01-14)
DX: A41.9 Sepsis, unspecified organism (principal); R50.9 Fever, unspecified; F11.23 Opioid dependence with withdrawal; B19.20 Unspecified viral hepatitis C without hepatic coma; B17.9 Acute viral hepatitis, unspecified; R63.0 Anorexia; R63.4 Abnormal weight loss; Z68.21 Body mass index [BMI] 21.0-21.9, adult; D72.819 Decreased white blood cell count, unspecified; R16.0 Hepatomegaly, not elsewhere classified; F10.239 Alcohol dependence with withdrawal, unspecified; K72.00 Acute and subacute hepatic failure without coma; E88.09 Other disorders of plasma-protein metabolism, not elsewhere classified; E46 Unspecified protein-calorie malnutrition
CPT/HCPCS: 36415; 71045-TC-FY; 76705-TC; 80053; 80307; 81003; 82390; 82550; 83516; 83605; 83690; 83735; 84100; 84484; 85025; 85610; 85730; 86038; 86644; 86645; 86664; 86665; 86704; 86706; 86707; 86708; 86709; 87040; 87086; 87340; 87389; 87522; 93005; 93010; 93306-TC; 99285-25; C9803; U0003